=== PATIENT | male | born 1995 | race Two or more races ===

== ENCOUNTER 2020-06-05 16:06 | Emergency (ER) | payer MEDICAID ==
[~2020-06-05] VITALS: Ht 175.3 cm; Wt 68.2 kg
[2020-06-05 16:13] VITALS: BP 137/91
[2020-06-05] MEDS ORDERED: TETanus/Pertussis (Acell)/Diphther VAC/PF (Tdap-Adult) 0.5ml syringe IMVAC ONE (16:35)
[2020-06-05] MEDS ORDERED: CEPH250T PO (17:52)
== END 2020-06-05 18:41 | disposition home or self-care (01) ==
LOC: ER 16:07
DX: T23.121A Burn of first degree of single right finger (nail) except thumb, initial encounter (principal); T31.0 Burns involving less than 10% of body surface; R05 Cough; Z79.899 Other long term (current) drug therapy; X08.8XXA Exposure to other specified smoke, fire and flames, initial encounter; W49.04XA Ring or other jewelry causing external constriction, initial encounter; Y93.89 Activity, other specified; Y92.89 Other specified places as the place of occurrence of the external cause; Y99.8 Other external cause status
CPT/HCPCS: 16020; 29130; 90471; 90715; 99284

== ENCOUNTER 2020-06-18 08:36 | Emergency (ER) | payer MEDICAID ==
[~2020-06-18] VITALS: Ht 175.3 cm; Wt 68.2 kg
[2020-06-18] MEDS ORDERED: CEPH250T PO (09:46)
[2020-06-18] MEDS ORDERED: BACI1PAC7 TOP (09:46)
[2020-06-18 10:16] VITALS: BP 122/68
== END 2020-06-18 10:18 | disposition home or self-care (01) ==
LOC: ER 08:37
DX: T23.021D Burn of unspecified degree of single right finger (nail) except thumb, subsequent encounter (principal); L03.113 Cellulitis of right upper limb; F15.90 Other stimulant use, unspecified, uncomplicated; Z79.2 Long term (current) use of antibiotics; Z79.899 Other long term (current) drug therapy; X08.8XXD Exposure to other specified smoke, fire and flames, subsequent encounter
CPT/HCPCS: 99283